=== PATIENT | male | born 1985 | race Caucasian/White ===

== ENCOUNTER 2017-07-16 17:19 | Emergency (ER) | payer OTHER ==
[~2017-07-16] VITALS: Ht 185.4 cm; Wt 115.7 kg
[~2017-07-16 17:19] MED LIST: HYDROCHLOROTH12.5 M1 PO; NORCO 5-325 TA1 EACH PO; OMEPRAZOLE20 M1 PO; PENICILLIN V P500 MG PO
[2017-07-16] MEDS ORDERED: NORCO 7.5-3251 EACH PO (18:14)
[2017-07-16] MEDS ORDERED: ROBAXIN-750750 MG PO (18:15)
== END 2017-07-16 19:01 | disposition home or self-care (01) ==
LOC: ED 17:19
DX: S39.012A Strain of muscle, fascia and tendon of lower back, initial encounter (principal); F17.200 Nicotine dependence, unspecified, uncomplicated; Z86.19 Personal history of other infectious and parasitic diseases; Z90.89 Acquired absence of other organs; Z91.048 Other nonmedicinal substance allergy status; W01.0XXA Fall on same level from slipping, tripping and stumbling without subsequent striking against object, initial encounter
CPT/HCPCS: 99283

== ENCOUNTER 2018-02-18 18:02 | Emergency (ER) | payer OTHER ==
[~2018-02-18] VITALS: Ht 185.4 cm; Wt 95.7 kg
[~2018-02-18 18:02] MED LIST changes: +NORCO 7.5-3251 EACH PO; +ROBAXIN-750750 MG PO
[2018-02-18] MEDS ORDERED: CLEOCIN HCL300 MG PO (18:36)
[2018-02-18] MEDS ORDERED: ULTRAM50 MG PO (18:36)
== END 2018-02-18 18:50 | disposition home or self-care (01) ==
LOC: ED 18:02
DX: K04.7 Periapical abscess without sinus (principal); K03.81 Cracked tooth; I10 Essential (primary) hypertension; J45.909 Unspecified asthma, uncomplicated; F17.200 Nicotine dependence, unspecified, uncomplicated; Z91.030 Bee allergy status; Z91.018 Allergy to other foods; Z91.048 Other nonmedicinal substance allergy status; Z79.899 Other long term (current) drug therapy
CPT/HCPCS: 99283

== ENCOUNTER 2018-02-23 15:18 | Emergency (ER) | payer OTHER ==
[~2018-02-23] VITALS: Ht 185.4 cm; Wt 90.7 kg
[~2018-02-23 15:18] MED LIST changes: +CLEOCIN HCL300 MG PO; +ULTRAM50 MG PO
[2018-02-23] MEDS ORDERED: METHYLPREDNISOLO4 M1 PO (15:41)
[2018-02-23] MEDS ORDERED: BACLOFEN10 MG PO (15:41)
[2018-02-23] MEDS ORDERED: KETOROLAC TROME10 MG PO (15:41)
== END 2018-02-23 15:46 | disposition home or self-care (01) ==
LOC: ED 15:18
DX: M99.03 Segmental and somatic dysfunction of lumbar region (principal); M62.830 Muscle spasm of back; I10 Essential (primary) hypertension; F17.200 Nicotine dependence, unspecified, uncomplicated; Z91.038 Other insect allergy status; Z91.018 Allergy to other foods; Z91.030 Bee allergy status; Z88.8 Allergy status to other drugs, medicaments and biological substances
CPT/HCPCS: 99283

== ENCOUNTER → 2018-03-12 | Emergency (ER) | payer OTHER ==
[~2018-03-12] VITALS: Ht 185.4 cm; Wt 88.5 kg
[~2018-03-12] MED LIST changes: +BACLOFEN10 MG PO; +KETOROLAC TROME10 MG PO; +METHYLPREDNISOLO4 M1 PO
== END ==
LOC: ED 17:04
DX: K04.7 Periapical abscess without sinus (principal); I10 Essential (primary) hypertension; J45.909 Unspecified asthma, uncomplicated; F17.200 Nicotine dependence, unspecified, uncomplicated; Z91.030 Bee allergy status; Z88.8 Allergy status to other drugs, medicaments and biological substances; Z79.899 Other long term (current) drug therapy
CPT/HCPCS: 99282

== ENCOUNTER 2018-11-17 14:10 | Emergency (ER) | payer OTHER ==
[~2018-11-17] VITALS: Ht 185.4 cm; Wt 88.5 kg
--- OUTSIDE RECORDS SUMMARY | 2018-11-17 14:14 | XMS ---
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 Care History Medical/Surgical 02/27/2018 [facility] - Patient is currently established with [facility]. If patient is seen in the ED during business hours. Please contact CHWs at [facility] at [phone]. Care Recommendation: This patient has had 5 or more Emergency Department visits in the last 12 months.\T\nbsp; Patient requires education on the scope and purpose of the ED as an acute care provider not a Primary Care Provider and should not be utilized for chronic conditions.\T\nbsp; If patient returns to ED please contact Community Health WorkerCielo at [phone]. These are guidelines and the provider should exercise clinical judgment when providing care. Mary VISIT COUNT (12 MO.) 5 MARLON Monteiro TOTAL 5 NOTE: Visits indicate total known visits. ED/UCC VISIT TRACKING (12 MO.) 11/17/2018 14:11 [facility] [place] TYPE: Emergency COMPLAINT: - L EAR PAIN/NO INJURY 08/24/2018 10:12 [facility] [place] TYPE: Emergency COMPLAINT: - FACIAL SWELLING,NON INJURY DIAGNOSES: - Other terminal operator (current) drug therapy - Other insect allergy status - Essential (primary) hypertension - Personal history of other infectious and parasitic diseases - Allergy to milk products - Localized swelling, mass and lump, head - Nicotine dependence, unspecified, uncomplicated - Periapical abscess without sinus - Allergy to other foods - Unspecified asthma, uncomplicated - Other nonmedicinal substance allergy status 03/12/2018 17:04 [facility] [place] TYPE: Emergency COMPLAINT: - DENTAL PAIN/ABSCESS DIAGNOSES: - Periapical abscess without sinus - Bee allergy status - Nicotine dependence, unspecified, uncomplicated - Unspecified asthma, uncomplicated - Allergy status to other drugs, medicaments and biological substances status - Essential (primary) hypertension - Other terminal operator (current) drug therapy 02/23/2018 15:18 [facility] [place] [place] TYPE: Emergency COMPLAINT: - BACK PAIN/NO INJURY DIAGNOSES: - Bee allergy status - Nicotine dependence, unspecified, uncomplicated - Allergy status to other drugs, medicaments and biological substances status - Essential (primary) hypertension - Allergy to other foods - Other insect allergy status - Muscle spasm of back - Low back pain - Segmental and somatic dysfunction of lumbar region 02/18/2018 18:[address] [facility] [place] TYPE: Emergency COMPLAINT: - DENTAL PAIN DIAGNOSES: - Other specified disorders of teeth and supporting structures - Other terminal operator (current) drug therapy - OTHER SPECIFIED DISORDERS OF TEETH AND SUPPORTING STRUCTURES - Other nonmedicinal substance allergy status - Essential (primary) hypertension - Periapical abscess without sinus - Bee allergy status - Cracked tooth - Nicotine dependence, unspecified, uncomplicated - Unspecified asthma, uncomplicated - Allergy to other foods INPATIENT VISIT TRACKING (12 MO.) No inpatient visits to display in this time frame [id number]
[2018-11-17] MEDS ORDERED: AMOXICILLIN500 MG PO (18:07)
[2018-11-17] MEDS ORDERED: NEXAFED30 MG PO (18:07)
== END 2018-11-17 18:22 | disposition home or self-care (01) ==
LOC: ED 14:10
DX: Z86.19 Personal history of other infectious and parasitic diseases (principal); H69.92 Unspecified Eustachian tube disorder, left ear; I10 Essential (primary) hypertension; F17.200 Nicotine dependence, unspecified, uncomplicated; Z91.038 Other insect allergy status; Z91.011 Allergy to milk products; Z91.09 Other allergy status, other than to drugs and biological substances
CPT/HCPCS: 99282

== ENCOUNTER 2019-01-26 08:29 | Emergency (ER) | payer OTHER ==
[~2019-01-26] VITALS: Ht 185.4 cm; Wt 88.5 kg
--- OUTSIDE RECORDS SUMMARY | ~2019-01-26 | XMS | Clinical Summary ---
Demographics + + + | Address | [address] | | | [place] [address] | + + + | Home Phone | | + + + | Preferred Language | Unknown | + + + | Marital Status | Unknown | + + + | Church Affiliation | Unknown | + + + | Race | Unknown | + + + | Ethnic Group | Unknown | + + + Author + + + | Author | [facility] | + + + | Organization | [facility] | + + + | Address | Unknown | + + + | Phone | Unavailable | + + + Support + + +---------+ + | Name | Relationship | Address | Phone | + + +---------+ + | No,Contact | ECON | Unknown | | + + +---------+ + Care Team Providers + +------+ + | Care Dj Instructor Name | Role | Phone | + +------+ + | Brandon Ayoub PAINTER AND GRADER CORK | PP | | + +------+ + [...] | | | | (Season Ended) | 9 | | | + + [...] + +--------+ +------+-------+ + | MEDICAID | [place] | [id number] | | | [address] | | | N | | | | [place] | | | [place] | | | | [address] | | | QUALITY CONTROL ENGINEERING TECHNICIAN | | | | | + +--------+ [...] | 1984 | [phone] | [place] [address] | | | [place] | | | [phone] | | + +--------+ +--------+ + +"
--- OUTSIDE RECORDS SUMMARY | ~2019-01-26 | XMS | Clinical Summary ---
Demographics + + + | Address | [address] | | | [place] [address] | + + + | Home Phone | | + + + | Preferred Language | Unknown | + + + | Marital Status | Unknown | + + + | Orthodox Affiliation | Unknown | + + + | Race | Unknown | + + + | Ethnic Group | Unknown | + + + Author + + + | Author | [facility] | + + + | Organization | [facility] | + + + | Address | Unknown | + + + | Phone | Unavailable | + + + Support + + +---------+ + | Name | Relationship | Address | Phone | + + +---------+ + | No,Contact | ECON | Unknown | | + + +---------+ + Care Team Providers + +------+ + | Care Yeast Pusher Name | Role | Phone | + +------+ + | Brandon Ayoub TEAM MEMBER | PP | | + +------+ + [...] +------+-------+ + | MEDICAID | [place] | [id number] | | | [address] | | | N | | | | [place] | | | [place] | | | | [phone] | | | FOREST FIRE PREVENTION SPECIALIST | | | | | + +--------+ [...] | 1984 | [phone] | [place] [address] | | | [place] | | | [address] | | + +--------+ +--------+ + +"
[~2019-01-26 08:29] MED LIST changes: +AMOXICILLIN500 MG PO; +NEXAFED30 MG PO
--- OUTSIDE RECORDS SUMMARY | 2019-01-26 08:32 | XMS ---
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 Care History Medical/Surgical 02/27/2018 [facility] - Patient is currently established with [facility]. If patient is seen in the ED during business hours. Please contact CHWs at [facility] at [phone]. Care Recommendation: This patient has had 5 or more Emergency Department visits in the last 12 months.\T\nbsp; Patient requires education on the scope and purpose of the ED as an acute care provider not a Primary Care Provider and should not be utilized for chronic conditions.\T\nbsp; If patient returns to ED please contact Community Health WorkerCielo at [phone]. These are guidelines and the provider should exercise clinical judgment when providing care. Mary VISIT COUNT (12 MO.) 6 MARLON Monteiro TOTAL 6 NOTE: Visits indicate total known visits. ED/UCC VISIT TRACKING (12 MO.) 01/26/2019 08:30 [facility] [place] TYPE: Emergency COMPLAINT: - L HAND PAIN/INJURY 11/17/2018 14:11 [facility] [place] TYPE: Emergency COMPLAINT: - L EAR PAIN/NO INJURY DIAGNOSES: - Personal history of other infectious and parasitic diseases - Essential (primary) hypertension - Other insect allergy status - Other allergy status, other than to drugs and biological substances - Nicotine dependence, unspecified, uncomplicated - Otalgia, left ear - Unspecified Eustachian tube disorder, left ear - Allergy to milk products 08/24/2018 10:12 [facility] [place] TYPE: Emergency COMPLAINT: - FACIAL SWELLING,NON INJURY DIAGNOSES: - Other rural health consultant (current) drug therapy - Other insect allergy status - Essential (primary) hypertension - Personal history of other infectious and parasitic diseases - Allergy to milk products - Localized swelling, mass and lump, head - Nicotine dependence, unspecified, uncomplicated - Periapical abscess without sinus - Allergy to other foods - Unspecified asthma, uncomplicated - Other nonmedicinal substance allergy status 03/12/2018 17:04 [facility] [place] TYPE: Emergency COMPLAINT: - DENTAL PAIN/ABSCESS DIAGNOSES: - Periapical abscess without sinus - Bee allergy status - Nicotine dependence, unspecified, uncomplicated - Unspecified asthma, uncomplicated - Allergy status to other drugs, medicaments and biological substances status - Essential (primary) hypertension - Other half-way (current) drug therapy 02/23/2018 15:18 [facility] [place] TYPE: Emergency COMPLAINT: - BACK PAIN/NO INJURY DIAGNOSES: - Bee allergy status - Nicotine dependence, unspecified, uncomplicated - Allergy status to other drugs, medicaments and biological substances status - Essential (primary) hypertension - Allergy to other foods - Other insect allergy status - Muscle spasm of back - Low back pain - Segmental and somatic dysfunction of lumbar region 02/18/2018 18:03 [facility] [place] TYPE: Emergency COMPLAINT: - DENTAL PAIN DIAGNOSES: - Other specified disorders of teeth and supporting structures - Other rural health consultant (current) drug therapy - OTHER SPECIFIED DISORDERS OF TEETH AND SUPPORTING STRUCTURES - Other nonmedicinal substance allergy status - Essential (primary) hypertension - Periapical abscess without sinus - Bee allergy status - Cracked tooth - Nicotine dependence, unspecified, uncomplicated - Unspecified asthma, uncomplicated - Allergy to other foods INPATIENT VISIT TRACKING (12 MO.) No inpatient visits to display in this time frame [id number]
== END 2019-01-26 10:27 | disposition home or self-care (01) ==
LOC: ED 08:29
DX: S63.613A Unspecified sprain of left middle finger, initial encounter (principal); I10 Essential (primary) hypertension; J45.909 Unspecified asthma, uncomplicated; F17.200 Nicotine dependence, unspecified, uncomplicated; Z91.011 Allergy to milk products; Z91.030 Bee allergy status; Z91.048 Other nonmedicinal substance allergy status; Z91.018 Allergy to other foods; Z91.038 Other insect allergy status; W23.0XXA Caught, crushed, jammed, or pinched between moving objects, initial encounter
CPT/HCPCS: 73140; 99283; 99406

== ENCOUNTER 2019-05-11 20:52 | Emergency (ER) | payer OTHER ==
[~2019-05-11] VITALS: Ht 185.4 cm; Wt 88.5 kg
--- OUTSIDE RECORDS SUMMARY | 2019-05-11 20:54 | XMS ---
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 Care History Medical/Surgical 02/27/2018 [facility] - Patient is currently established with [facility]. If patient is seen in the ED during business hours. Please contact CHWs at [facility] at [phone]. Care Recommendation: This patient has had 5 or more Emergency Department visits in the last 12 months.\T\nbsp; Patient requires education on the scope and purpose of the ED as an acute care provider not a Primary Care Provider and should not be utilized for chronic conditions.\T\nbsp; If patient returns to ED please contact Community Health WorkerCielo at [phone]. These are guidelines and the provider should exercise clinical judgment when providing care. Mary VISIT COUNT (12 MO.) 4 MARLON Monteiro TOTAL 4 NOTE: Visits indicate total known visits. ED/UCC VISIT TRACKING (12 MO.) 05/11/2019 20:52 [facility] [place] TYPE: Emergency COMPLAINT: - DENTAL PAIN 01/26/2019 08:30 [facility] [place] TYPE: Emergency COMPLAINT: - L HAND PAIN/INJURY DIAGNOSES: - Unspecified injury of left wrist, hand and finger(s), initial encounter - Bee allergy status - Other nonmedicinal substance allergy status - Unspecified asthma, uncomplicated - Allergy to other foods - Unspecified sprain of left middle finger, initial encounter - Other insect allergy status - Nicotine dependence, unspecified, uncomplicated - Caught, crushed, jammed, or pinched between moving objects, initial encounter - Essential (primary) hypertension - Allergy to milk products 11/17/2018 14:11 [facility] [place] TYPE: Emergency [...] - FACIAL SWELLING,NON INJURY DIAGNOSES: - Other snf (current) drug therapy - Other insect allergy status - Essential (primary) hypertension - Personal history of other infectious and parasitic diseases - Allergy to milk products - Localized swelling, mass and lump, head - Nicotine dependence, unspecified, uncomplicated - Periapical abscess without sinus - Allergy to other foods - Unspecified asthma, uncomplicated - Other nonmedicinal substance allergy status INPATIENT VISIT TRACKING (12 MO.) No inpatient visits to display in this time frame [id number]
[2019-05-11] MEDS ORDERED: PENICILLIN V P500 MG PO (22:15)
== END 2019-05-11 22:30 | disposition home or self-care (01) ==
LOC: ED 20:52
DX: K02.9 Dental caries, unspecified (principal); I10 Essential (primary) hypertension; F17.200 Nicotine dependence, unspecified, uncomplicated; Z91.018 Allergy to other foods; Z91.011 Allergy to milk products; Z91.048 Other nonmedicinal substance allergy status; Z91.030 Bee allergy status
CPT/HCPCS: 99282

== ENCOUNTER 2019-07-05 08:03 | Emergency (ER) | payer OTHER ==
--- OUTSIDE RECORDS SUMMARY | ~2019-07-05 | XMS | Clinical Summary ---
Demographics + + + | Address | [address] | | | [place] [address] | + + + | Home Phone | | + + + | Preferred Language | Unknown | + + + | Marital Status | Unknown | + + + | Orthodoxy Affiliation | Unknown | + + + | Race | Unknown | + + + | Ethnic Group | Unknown | + + + Author + + + | Author | [facility] (Historical as of | | | 04-28-19) | + + + | Organization | [facility] (Historical as of | | | 04-28-19) | + + + | Address | Unknown | + + + | Phone | Unavailable | + + + Support + + +---------+ + | Name | Relationship | Address | Phone | + + +---------+ + | No,Contact | ECON | Unknown | | + + +---------+ + Care Team Providers + +------+ + | Care Grain Grader Name | Role | Phone | + +------+ + | Brandon Ayoub | PP | | + +------+ + Allergies Not on File Current Medications Not on file Active Problems Not on file Social History + +-------+ +--------+------+ | Tobacco Use | Types | Packs/Day | Years | Date | | | | | Used | | + +-------+ +--------+------+ | Never Assessed | | | | | + +-------+ +--------+------+ + + + | Sex Assigned at | Date Recorded | | | | + + + | Not on file | | + + + Plan of Treatment + + + + + | Health Maintenance | Due Date | Last Done | Comments | + + + + + | Vaccine: | | | | | Dtap/Tdap/Td (1 - | 6 | | | | Tdap) | | | | + + + + + | Vaccine: Influenza | | | | | (#1) | 9 | | | + + + + + Results Not on filefrom Last 3 Months Insurance + +--------+ +------+-------+ + | Payer | Benefi | Subscriber | Type | Phone | Address | | | t Plan | ID | | | | | | / | | | | | | | Group | | | | | + +--------+ +------+-------+ + | MEDICAID | JULES | [id number] | | | [address] | | | N | | | | [place] | | | [place] | | | | [phone] | | | WIRE MESH KNITTER | | | | | + +--------+ +------+-------+ + + +--------+ +--------+ + + | Guarantor Name | Accoun | Relation to | Date | Phone | Billing Address | | | t Type | Patient | of | | | | | | | | | | + +--------+ +--------+ + + | HILTON SIM | Person | Self | [birth year] Home: | [address] | | | al/Fam | | 1984 | [phone] | [place] [address] | | | [place] | | | [address] | | + +--------+ +--------+ + +"
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
== END 2019-07-05 08:22 | disposition home or self-care (01) ==
LOC: ED 08:03
DX: R07.81 Pleurodynia (principal); Z53.21 Procedure and treatment not carried out due to patient leaving prior to being seen by health care provider

== ENCOUNTER 2020-01-09 23:31 | Emergency (ER) | payer OTHER ==
[~2020-01-09] VITALS: Ht 182.9 cm; Wt 98.9 kg
--- OUTSIDE RECORDS SUMMARY | ~2020-01-09 | XMS | Clinical Summary ---
Demographics + + + | Address | [address] | | | [place] [address] | + + + | Home Phone | | + + + | Preferred Language | Unknown | + + + | Marital Status | Unknown | + + + | Restorationism Affiliation | Unknown | + + + | Race | Unknown | + + + | Ethnic Group | Unknown | + + + Author + + + | Author | [facility] (Historical as of | | | 04-28-19) | + + + | Organization | [facility] (Historical as of | | | 04-28-19) [...] Team Providers + +------+ + | Care Offset Assistant Press Operator Name | Role | Phone | + [...] Vaccine: Influenza | | | | | (Season Ended) | 0 | | | + + + + [...] +------+-------+ + | MEDICAID | JULES | [id number] | | | [address] | | | N | | | | [place] | | | [place] | | | | [phone] | | | ETHNOGRAPHIC MATERIALS CONSERVATOR | | | | | + +--------+ [...] | 1984 | [phone] | [place] [address] | | | [place] | | | [address] | | + +--------+ +--------+ + +"
--- OUTSIDE RECORDS SUMMARY | ~2020-01-09 | XMS | Clinical Summary ---
Demographics + + + | Address | [address] | | | [place] [address] | + + + | Home Phone | | + + + | Preferred Language | Unknown | + + + | Marital Status | Unknown | + + + | Protestant Affiliation | Unknown | + + + | Race | Unknown | + + + | Ethnic Group | Unknown | + + + Author + + + | Author | [facility] [employer] [facility] (Historical as of | | | 04-28-19) | + + + | Organization | [facility] [employer] [facility] (Historical as of | | | 04-28-19) [...] Team Providers + +------+ + | Care Shake Out Worker Name | Role | Phone | + [...] +------+-------+ + | MEDICAID | JULES | [id number] | | | [address] | | | N | | | | [place] | | | [place] | | | | [address] | | | FOOD MIXER ASSEMBLER | | | | | + +--------+ [...] | 1984 | [phone] | [place] [address] | | | [place] | | | [address] | | + +--------+ +--------+ + +"
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
== END 2020-01-10 00:55 | disposition home or self-care (01) ==
LOC: ED 23:31
DX: S61.411A Laceration without foreign body of right hand, initial encounter (principal); I10 Essential (primary) hypertension; F17.200 Nicotine dependence, unspecified, uncomplicated; Z91.030 Bee allergy status; W22.8XXA Striking against or struck by other objects, initial encounter
CPT/HCPCS: 12002; 73130; 90471; 90715; 99283-25

== ENCOUNTER 2020-01-17 14:04 | Emergency (ER) | payer OTHER ==
[~2020-01-17] VITALS: Ht 182.9 cm; Wt 98.9 kg
--- OUTSIDE RECORDS SUMMARY | ~2020-01-17 | XMS | Clinical Summary ---
Demographics + + + | Address | [address] | | | [place] [address] | + + + | Home Phone | | + + + | Preferred Language | Unknown | + + + | Marital Status | Unknown | + + + | Voodoo Affiliation | Unknown | + + + | Race | Unknown | + + + | Ethnic Group | Unknown | + + + Author + + + | Author | [facility] (Historical as of | | | 04-28-19) | + + + | Organization | [facility] (Historical as of | | | 04-28-19) [...] Team Providers + +------+ + | Care Dexigraph Operator Name | Role | Phone | [...] +------+-------+ + | MEDICAID | JULES | [id number] | | | [address] | | | [address] | | | | [place] | | | [place] | | | | [address] | | | BUFFERER | | | | | + +--------+ [...] | 1984 | [phone] | [place] [address] | | | [place] | | | [phone] | | + +--------+ +--------+ + +"
--- OUTSIDE RECORDS SUMMARY | ~2020-01-17 | XMS | Clinical Summary ---
Demographics + + + | Address | [address] | | | [place] [address] | + + + | Home Phone | | + + + | Preferred Language | Unknown | + + + | Marital Status | Unknown | + + + | Scientologist Affiliation | Unknown | + + + | Race | Unknown | + + + | Ethnic Group | Unknown | + + + Author + + + | Author | [facility] (Historical as of | | | 04-28-19) | + + + | Organization | [facility] (Historical as of | | | 04-28-19) [...] Team Providers + +------+ + | Care Trap Operator Name | Role | Phone | [...] +------+-------+ + | MEDICAID | JULES | [id number] | | | [address] | | | N | | | | [place] | | | [place] | | | | [phone] | | | 

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
== END 2020-01-17 14:37 | disposition home or self-care (01) ==
LOC: ED 14:04
DX: Z48.02 Encounter for removal of sutures (principal)